=== PATIENT | female | born 1995 | race African-American/Black ===

== ENCOUNTER 2019-09-04 13:09 | Emergency (ER) | payer OTHER ==
[~2019-09-04] VITALS: Ht 165.1 cm; Wt 122.5 kg
[2019-09-04 13:14] VITALS: Ht 165.1 cm; Wt 122.5 kg
[2019-09-04 14:38] LABS: BASOPHIL % 0.6 % (0-2); PLATELET COUNT 263 x10^3mcL (130-400); RED CELL DISTRIBUTION WIDTH 12.9 % (11.5-14.5)
[2019-09-04 14:43] LABS: CARBON DIOXIDE 26.2 mmol/L (21-32); CHLORIDE SERUM 103 mmol/L (98-107); CREATININE SERUM 0.9 mg/dL (0.6-1.0); GFR1 > 60 mL/min; GLUCOSE SERUM 114 mg/dL (74-106); SODIUM SERUM 136 mmol/L (136-145)
[2019-09-04 14:48] LABS: ALBUMIN 3.5 g/dL (3.4-5.0); ALKALINE PHOSPHATASE 88 U/L (46-116); ALT/SGPT 34 U/L (14-59); AST/SGOT 14 U/L (15-37); BILIRUBIN TOTAL 0.3 mg/dL (0.20-1.00)
[2019-09-04 16:44] VITALS: BP 125/74
== END 2019-09-04 16:44 | disposition home or self-care (01) ==
LOC: ED 13:09
PROVIDERS: Emergency Medicine
DX: T78.2XXA Anaphylactic shock, unspecified, initial encounter (principal); J45.901 Unspecified asthma with (acute) exacerbation; Y92.89 Other specified places as the place of occurrence of the external cause
CPT/HCPCS: J2930; J7512; J7613; J7644; Q0092

== ENCOUNTER 2019-11-21 02:14 | Emergency (ER) | payer OTHER ==
[~2019-11-21] VITALS: Ht 165.1 cm; Wt 133.4 kg
[2019-11-21 02:17] VITALS: Ht 165.1 cm; Wt 133.4 kg
[2019-11-21 03:19] VITALS: BP 117/70
== END 2019-11-21 04:52 | disposition home or self-care (01) ==
LOC: ED 02:14
DX: J45.909 Unspecified asthma, uncomplicated (principal); R00.2 Palpitations; R42 Dizziness and giddiness
CPT/HCPCS: J1885; J7512; J7613; J7644

== ENCOUNTER 2019-11-22 19:19 | Emergency (ER) | payer OTHER ==
[~2019-11-22] VITALS: Ht 165.1 cm; Wt 131.1 kg
[2019-11-22 19:28] VITALS: Ht 165.1 cm; Wt 131.1 kg
[2019-11-22 20:03] LABS: BASOPHIL % 0 % (0-2); PLATELET COUNT 289 x10^3mcL (130-400); RED CELL DISTRIBUTION WIDTH 12.9 % (11.5-14.5)
[2019-11-22 20:12] LABS: CALCIUM 8.5 mg/dL (8.5-10.1); CARBON DIOXIDE 27.3 mmol/L (21-32); CHLORIDE SERUM 105 mmol/L (98-107); CREATININE SERUM 0.9 mg/dL (0.6-1.0); GFR1 > 60 mL/min; GLUCOSE SERUM 107 mg/dL (74-106); POTASSIUM SERUM 3.5 mmol/L (3.5-5.1); SODIUM SERUM 140 mmol/L (136-145)
[2019-11-22 20:17] LABS: ALBUMIN 3.3 g/dL (3.4-5.0); ALKALINE PHOSPHATASE 84 U/L (46-116); ALT/SGPT 29 U/L (14-59); AST/SGOT 16 U/L (15-37); BILIRUBIN TOTAL 0.2 mg/dL (0.20-1.00); TOTAL PROTEIN, SERUM 7.7 g/dL (6.4-8.2)
[2019-11-22 22:01] VITALS: BP 123/70
== END 2019-11-22 22:01 | disposition home or self-care (01) ==
LOC: ED 19:19
PROVIDERS: Emergency Medicine
DX: M94.0 Chondrocostal junction syndrome [Tietze] (principal); J45.909 Unspecified asthma, uncomplicated
CPT/HCPCS: 36415; 87804; J1885

== ENCOUNTER 2020-01-18 03:17 | Emergency (ER) | payer OTHER ==
[~2020-01-18] VITALS: Ht 162.6 cm; Wt 133.5 kg
[2020-01-18 03:28] VITALS: Ht 162.6 cm; Wt 133.5 kg
[2020-01-18 04:23] LABS: CALCIUM 8.4 mg/dL (8.5-10.1); CHLORIDE SERUM 105 mmol/L (98-107); GFR1 > 60 mL/min; GLUCOSE SERUM 90 mg/dL (74-106); POTASSIUM SERUM 3.8 mmol/L (3.5-5.1); SODIUM SERUM 139 mmol/L (136-145)
[2020-01-18 04:23] LABS: AMPHETAMINE QUAL UR NONE DETECTED (See below)
[2020-01-18 05:26] VITALS: BP 117/71
== END 2020-01-18 05:26 | disposition home or self-care (01) ==
LOC: ED 03:17
PROVIDERS: Emergency Medicine
DX: R25.1 Tremor, unspecified (principal); J45.909 Unspecified asthma, uncomplicated
CPT/HCPCS: Q0163